=== PATIENT | male | born 2000 | race Caucasian/White ===

== ENCOUNTER 2020-08-20 18:26 | Emergency (ER) | payer BC ==
[~2020-08-20] VITALS: Ht 172.7 cm; Wt 55.0 kg
[2020-08-20] MEDS ORDERED: ONDANSETRON 4MG ODT PO ONE (19:00)
[2020-08-20] MEDS ORDERED: MORPHINE SULFATE 10 MG/ML CPJ IM ONE (19:00)
[2020-08-20] MEDS ORDERED: BUPIVACAINE HCL/PF 0.5% (5MG/ML) 10ML INFIL ONE (19:00)
[2020-08-20] MEDS ORDERED: IBUP-2029 MT (19:32)
[2020-08-20 21:00] VITALS: BP 122/76
== END 2020-08-20 21:21 | disposition home or self-care (01) ==
LOC: ER 18:26
DX: S62.101A Fracture of unspecified carpal bone, right wrist, initial encounter for closed fracture (principal); J45.909 Unspecified asthma, uncomplicated; Z98.890 Other specified postprocedural states; V00.131A Fall from skateboard, initial encounter; Y93.89 Activity, other specified; Y92.89 Other specified places as the place of occurrence of the external cause; Y99.8 Other external cause status
CPT/HCPCS: 25605; 73100; 73110; 96372; 99284; J2270; J3490; Q0162